=== PATIENT | male | born 1980 | race Caucasian/White ===

== ENCOUNTER 2019-07-09 10:27 | Observation (INO) | payer BC ==
[~2019-07-09] VITALS: Ht 170.2 cm; Wt 85.7 kg
[2019-07-09 10:29] VITALS: Ht 170.2 cm; Wt 85.7 kg
--- NOTE | 2019-07-09 10:40 | NUR ---
PT ARRIVED FROM HOME, C/O CHEST PAIN 8 PAIN PRESSURE CONSTANT RADIATING TO LEFT ARM AND LEG, SOB WITH EXERTION, NUMBNESS AND TINGLING TO LEFT UPPER AND LOWER EXTEREMITIES SINCE 939 TODAY. PATIENT STATES HE WAS AT WORK, DRIVING FORKLIFT, WHEN SUDDEN PAIN OCCURED, PATIENT DENIES ANY OTHER SYMPTOMS AT THIS TIME. PATIENT PLACED IN BED 03, SITTING IN BED, AAOX4, NO ACUTE DISTRESS NOTED, GOWNED, PLACED ON KNIFE GRINDER,+ PULSE OX, EKG OBTAINED. SAFETY PRECAUTIONS IN PLACE, CALL LIGHT WITHIN REACH, URINE COLLECTED, MSE DONE BY DR. VEGA.
--- NOTE | 2019-07-09 10:57 | NUR ---
EKG IN PROGRESS
--- NOTE | 2019-07-09 10:58 | NUR ---
DR VEGA AT BEDSIDE WITH MSE
[2019-07-09 11:16] LABS: BASOPHIL % 0.1 % (0-2); PLATELET COUNT 217 x10^3mcL (130-400)
--- NOTE | 2019-07-09 11:17 | NUR ---
PAIN MEDICATION ADMINISTERED PER DR. VEGA ORDER. PT TOLERATED WELL, CALL LIGHT WITHIN REACH, WILL CONTINUE TO MONITOR.
--- NOTE | 2019-07-09 11:20 | NUR ---
XRAY AT BEDSIDE.
[2019-07-09 11:29] LABS: CALCIUM 8.9 mg/dL (8.5-10.1); CARBON DIOXIDE 24.4 mmol/L (21-32); CHLORIDE SERUM 106 mmol/L (98-107); CREATININE SERUM 0.8 mg/dL (0.7-1.3); GFR1 > 60 mL/min; GLUCOSE SERUM 109 mg/dL (74-106); POTASSIUM SERUM 3.7 mmol/L (3.5-5.1); SODIUM SERUM 141 mmol/L (136-145)
[2019-07-09 11:33] LABS: ALBUMIN 3.9 g/dL (3.4-5.0); ALKALINE PHOSPHATASE 55 U/L (46-116); ALT/SGPT 17 U/L (16-63); AST/SGOT 12 U/L (15-37); BILIRUBIN TOTAL 0.63 mg/dL (0.20-1.00); TOTAL PROTEIN, SERUM 6.8 g/dL (6.4-8.2)
--- NOTE | 2019-07-09 11:51 | NUR ---
PATIENT RESTING AT THIS TIME, STATES "2/10" PAIN AT THIS TIME. CALL LIGHT WITHIN REACH, WILL CONTINUE TO MONITOR. AWATING FOR RESULTS.
[2019-07-09 12:09] LABS: AMPHETAMINE QUAL UR NONE DETECTED (See below)
--- NOTE | 2019-07-09 12:16 | NUR ---
PATIENT SITTING IN BED, LOOKING AT PHONE, NO DISTRESS NOTED AT THIS TIME, WILL CONTINUE TO MONITOR.
--- NOTE | 2019-07-09 12:42 | NUR ---
PATIENT SITTING IN BED AND LOOKING AT PHONE. PT DENIES ANY PAIN AT THIS TIME "2", PT STATES " I FEEL BETTER AND IM GETTING HUNGRY" OFFERED PATIENT TO ASK DR. VEGA IF HE CAN HAVE FOOD AND GAVE OPTIONS OF FOOD WE CAN PROVIDE OF [employer] APPROVES, PT STATES " NO, THATS OK. I'LL JUST WAIT." AWATING LAB TEST, WILL CONTINUE TO MONITOR, CALL LIGHT WITHIN REACH.
--- NOTE | 2019-07-09 12:48 | NUR ---
2ND EKG IN PROGRESS AT THIS TIME, PER DR. VEGA.
--- NOTE | 2019-07-09 13:27 | NUR ---
DR VEGA AT BEDSIDE DISCUSSING POC WITH THE PT.
--- NOTE | 2019-07-09 13:56 | NUR ---
PATIENT STATES HE IS HUNGRY. PER DR. GARY DIAZ FOR PATIENT TO EAT. PROVIDED PT SODIUM FREE CRACKERS AND WATER SINCE PATIENT HAS A CARDIAC DIET. PENDING TRAY TO BE DELIVERED. CALL LIGHT WITHIN REACH, WILL CONTINUE TO MONITOR.
--- NOTE | 2019-07-09 14:08 | NUR ---
REPORT GIVEN TO RICARDO BHATTI AT ET. [id number], ALL QUESTIONS ADDRESSED.
[2019-07-09 14:27] VITALS: BP 118/74
--- NOTE | 2019-07-09 14:29 | NUR ---
RECEIVED PT FROM ED. AOX4, ABLE TO FOLLOW COMMANDS, RESPIRATIONS EVEN/UNLABORED, DENIES SOB/COUGH, LUNGS CTA. ON TELE #29 SINUS CATIE WITH ELEVATED T, DENIES CP AT THE TIME, STATES HE FEELS DISCOMFORT UPON DEEP INHALATION, S1 AND S2 NOTED. ABDOMEN SOFT/ROUND, BOWEL SOUNDS ACTIVE. IV SITE TO FA PATENT, NO SIGNS OF INFILTRATION. DENIES PAIN AT THIS TIME. SKIN IS INTACT, PERIPHERAL PULSES PALPABLE, INCLUDING PEDAL PULSES MODERATELY STRONG. CALL LIGHT IN REACH, WILL CONTINUE TO MONITOR.
[2019-07-09 17:28] VITALS: BP 112/62
--- NOTE | 2019-07-09 18:50 | NUR ---
PT RESTING IN BED COMFORTABLY, DENIES PAIN AT THIS TIME, WILL ENDORSE CARE TO NEXT SHIFT.
[2019-07-09 19:22] VITALS: BP 115/69
--- NOTE | 2019-07-09 19:55 | NUR ---
RECEIVED PT IN BED, RESTING, A/O X4. DENIES HEADACHE/DIZZINESS. RESP. EVEN AND UNLABORED. LUNG SOUNDS CLEAR BILAT. ON ROOM AIR, NO ACUTE DISTRESS NOTED. AFEBRILE AND VITAL SIGNS STABLE. SR ON THE MONITOR, DENIES CP OR ANY DISCOMFORT AT THIS TIME. HL INTACT AND PATENT. NO COMPLAINTS NOTED AT THIS TIME. CALL LIGHT WITHIN REACH. WILL CONTINUE TO MONITOR.
--- NOTE | 2019-07-09 23:32 | NUR ---
REQUESTED SLEEPING MED, MEDICATED WITH AMBIEN PER EMAR. CALL LIGHT WITHIN REACH. WILL CONTINUE TO MONITOR.
--- NOTE | 2019-07-10 01:43 | NUR ---
RESTING QUIETLY IN BED, WITH EYES CLOSED, APPEARS ASLEEP, EASILY AROUSABLE. RESP. EVEN AND UNLABORED, NO ACUTE DISTRESS NOTED. WILL CONTINUE TO MONITOR.
[2019-07-10 05:04] VITALS: BP 109/55
--- NOTE | 2019-07-10 06:19 | NUR ---
SLEPT WELL. NO COMPLAINTS NOTED DURING THE NIGHT. FOR STRESS TEST TODAY, PT AWARE TO MAINTAIN NPO AFTER BREAKFAST AND ALSO TO AVOID CAFFEINE INTAKE. HL INTACT AND PATENT. SR/SB ON THE MONITOR, DENIES CP OR ANY DISCOMFORT. KEPT COMFORTABLE. CALL LIGHT WITHIN REACH. WILL CONTINUE TO MONITOR.
[2019-07-10 06:23] LABS: BASOPHIL % 0.3 % (0-2); PLATELET COUNT 203 x10^3mcL (130-400); RED CELL DISTRIBUTION WIDTH 14.1 % (11.5-14.5)
[2019-07-10 06:30] LABS: CALCIUM 8.8 mg/dL (8.5-10.1); CHLORIDE SERUM 107 mmol/L (98-107); CREATININE SERUM 0.9 mg/dL (0.7-1.3); GFR1 > 60 mL/min; GLUCOSE SERUM 94 mg/dL (74-106); POTASSIUM SERUM 4.2 mmol/L (3.5-5.1); SODIUM SERUM 142 mmol/L (136-145)
[2019-07-10 06:49] LABS: CHOLESTEROL/HDL RATIO 3.9
--- NOTE | 2019-07-10 07:40 | NUR ---
RECIEVED PT FROM PM NURSE, PT IN BED RESTING. PT AWAKE AND A&OX4. LUNG SOUNDS CTA SALLY, DENIES SOB. S1S2 HEART SOUNDS HEARD, PT DENIES CHEST PAIN. BUE AND BLE PULSES STRONG, NO EDEMA NOTED. BOWEL SOUNDS ACTIVE, PT VOIDS. NO WEAKNESS PT IS AMBULATORY. IV TO LAC IS PATENT, NO SWELLING OR REDNESS NOTED. PT DENIES PAIN AT THIS TIME. PT IS AWARE OF STRESS TEST PROCEDURE SCHEDULED FOR TODAY. PT HAS NO QUESTIONS AT THIS TIME. CALL LIGHT IN REACH.
[2019-07-10 08:00] VITALS: BP 118/70
--- NOTE | 2019-07-10 09:19 | NUR ---
ATTEMPTED TO GIVE PT MEDS, ECHO BEING COMPLETED AT BEDSIDE, WILL RETURN WITH MEDS.
--- NOTE | 2019-07-10 11:55 | NUR ---
PT TAKEN DOWNSTAIRS FOR STRESS TEST. REMOVED TELEMETRY LEADS AND STORED WITH [employer].
--- NOTE | 2019-07-10 14:15 | NUR ---
CARDIOLITE TREADMILL DONE
[2019-07-10] MEDS ORDERED: MOT800 PO (14:50)
[2019-07-10] MEDS ORDERED: PEP20 PO (14:50)
--- NOTE | 2019-07-10 14:50 | NUR ---
PT BROUGHT BACK FROM STRESS TEST. PT IS STABLE. PT CONNECTED TO TELE MONITOR LEADS. PT DENIES PAIN AT THIS TIME. FOOD TRAY WAS GIVEN, PT IS EATING. CALL LIGHT IN REACH.
--- NOTE | 2019-07-10 15:43 | NUR ---
CALLED DR. CLAY MADE AWARE OF STRESS TEST RESULTS. PER DR. CLAY PT IS CLEARED FROM CARDIAC STANDPOINT.
--- NOTE | 2019-07-10 15:50 | NUR ---
PAGED DR RODRIGUEZ, WAITING FOR CALL BACK. WILL NOTIFY THAT DR CLAY HAS CLEARED PT FOR DISCHARGE.
[2019-07-10 15:53] VITALS: BP 118/70
--- NOTE | 2019-07-10 16:17 | NUR ---
PT SITTING UP IN BED. PT GIVEN DISCHARGE INSTRUCTIONS. PT ENCOURAGED TO CONTINUE NORMAL ACTIVITY TOLERATED. PT MADE AWARE OF PRESCRIPTION FOR MOTRIN AND PEPCID SENT TO [facility] IN [place]. PT ENCOURAGED TO START TAKING MEDICATION TONIGHT AND CONTINUE FOR 5 DAYS. PT MADE AWARE OF FOLLOW UP APPOINTMENT WITH DR. CASTELLANOS ON 07/15/19 AT 11:15 AM. PT ENCOURAGED TO RETURN TO ER OR CALL PCP IF ANY WORSENING SYMPTOMS OF SOB, CHEST PAIN, FEVER OR N/V. PT ENCOURAGED TO STOP SMOKING. PT REQUESTING FOR A RETURN TO WORK NOTE FOR TODAY. DR. RODRIGUEZ ALREADY PAGED, AWAITING CALL BACK. IV TO LAC REMOVED CATHETER INTACT. NO REDNESS OR SWELLING NOTED. TELE#29 RETURNED TO [facility].
--- NOTE | 2019-07-10 16:49 | NUR ---
DR. RODRIGUEZ PAGED AGAIN REGARDING PT NEEDING WORK NOTE, AWAITING CALL BACK.
== END 2019-07-10 17:05 | disposition home or self-care (01) ==
LOC: ED 10:27 → DU 13:50
PROVIDERS: Emergency Medicine; Internal Medicine Cardiovascular Disease; ADMIT Hospitalist
DX: I30.9 Acute pericarditis, unspecified (principal); F12.10 Cannabis abuse, uncomplicated; F17.200 Nicotine dependence, unspecified, uncomplicated
CPT/HCPCS: 85378; 90658; 99406; A9500; G0378; J1885; J2785